=== PATIENT | female | born 1950 | race Caucasian/White ===

== ENCOUNTER 2019-06-14 08:14 | Inpatient (IN) | payer OTHER ==
[~2019-06-14] VITALS: Ht 180.3 cm; Wt 78.0 kg
--- NOTE | 2019-06-14 08:40 | NUR ---
WALLACE ACROSS FOREHEAD AREA THAT STARTED YESTERDAY. DESCRIBED SMELLING SOMETHING FIRST. PT HAS BEEN VOMITING THROUGH THE NIGHT
[2019-06-14] MEDS ORDERED: METOCLOPRAMIDE 5 MG/ML, 2ML IVPush ONE (09:00)
[2019-06-14] MEDS ORDERED: METOCLOPRAMIDE 5 MG/ML, 2ML ONE (09:00)
[2019-06-14] MEDS ORDERED: DIPHENHYDRAMINE 50 MG/ML, 1ML ONE (09:00)
[2019-06-14] MEDS ORDERED: DIPHENHYDRAMINE 50 MG/ML, 1ML IVPush ONE (09:00)
[2019-06-14] MEDS ORDERED: SODIUM CHLORIDE 0.9% 1,000ML IVBOLUS ONE (09:00)
--- NOTE | 2019-06-14 09:14 | NUR ---
PT DRY HEAVING AND MEDICATED FOR SAME NOTED ON MAR WITH FLUIDS INFUSING
[2019-06-14 09:51] LABS: BASOPHILS # (AUTO) 0.01 x10^3/uL (0-0.1); BASOPHILS % (AUTO) 0 % (0-1); EOSINOPHILS % (AUTO) 0 % (1-7); LYMPHOCYTES # (AUTO) 1.31 x10^3/uL (1-3.4); LYMPHOCYTES % (AUTO) 25 % (22-44); MD NO; MEAN CORPUSCULAR HEMOGLOBIN 30.5 pg (27.0-34.8); MEAN CORPUSCULAR HGB CONC 33.6 g/dL (32.4-35.8); MEAN CORPUSCULAR VOLUME 90.8 fL (80-100); MEAN PLATELET VOLUME 8.5 fL (7.4-10.4); MONOCYTES # (AUTO) 0.13 x10^3/uL (0.2-0.8); MONOCYTES % (AUTO) 2 % (2-9); NEUTROPHILS % (AUTO) 73 % (42-75); PLATELET COUNT 184 x10^3/uL (130-400); RED BLOOD COUNT 4.81 x10^6/uL (3.82-5.3)
[2019-06-14 09:58] LABS: ALANINE AMINOTRANSFERASE 15 U/L (12-78); ALBUMIN 4.2 g/dL (3.4-5.0); ANION GAP 9 mmol/L (5-15); CHLORIDE 108 mmol/L (98-107); CREATININE 0.57 mg/dL (0.55-1.02)
[2019-06-14] MEDS ORDERED: PROMETHAZINE 25 MG/ML, 1ML ONE (09:59)
[2019-06-14] MEDS ORDERED: KETOROLAC 30 MG/1 ML ONE ×3 (09:59→17:49)
[2019-06-14] MEDS ORDERED: DEXAMETHASONE 4 MG/ML, 1ML IVPush ONE (10:00)
[2019-06-14] MEDS ORDERED: KETOROLAC 30 MG/1 ML IV ONE (10:00)
[2019-06-14] MEDS ORDERED: MORPHINE SULFATE 4 MG/ML, 1ML ONE ×3 (10:00→18:31)
--- NOTE | 2019-06-14 10:01 | NUR ---
AMBULATED TO BATHROOM WITHOUT ASSISTANCE. C/O CONTINUED WALLACE, NAUSEA AND DRY HEAVES. MD AWARE AND ORDERS RECEIVED FOR ADDITIONAL MEDICATION
[2019-06-14 10:03] LABS: ALKALINE PHOSPHATASE 60 U/L (45-117); BILIRUBIN,TOTAL 1.1 mg/dL (0.2-1.0); TOTAL PROTEIN 8.3 g/dL (6.4-8.2); TROPONIN I < 0.015 ng/mL (0.000-0.045)
[2019-06-14] MEDS: PROMETHAZINE 25 MG/ML, 1ML IM ONE ×2 (10:03→10:13)
[2019-06-14] MEDS: morphine SULFATE 10 MG/ML, 1ML IVPush PRN ×4 (10:03→18:34)
[2019-06-14] MEDS ORDERED: DEXAMETHASONE 4 MG/ML, 1ML ONE (10:17)
[2019-06-14] MEDS ORDERED: ENALAPRILAT 1.25 MG/ML, 2ML IV ONE (11:30)
[2019-06-14] MEDS ORDERED: ENALAPRILAT 1.25 MG/ML, 1ML ONE (11:41)
--- NOTE | 2019-06-14 11:47 | NUR ---
PT STATES NO LONGER NAUSEATED. PROVIDED [place]. CONTINUES TO HAVE WALLACE. MEDICATED NOTED ON JUL FOR BP 196/83
[2019-06-14] MEDS ORDERED: hydrALAzine 20 MG/ML, 1ML IV ONE (12:30)
[2019-06-14] MEDS ORDERED: KETOROLAC 30 MG/1 ML IVPush ONE (12:30)
[2019-06-14] MEDS ORDERED: hydrALAzine 20 MG/ML, 1ML ONE (12:48)
--- NOTE | 2019-06-14 12:58 | NUR ---
HOSPITALIST AT BEDSIDE
[2019-06-14] MEDS ORDERED: ONDANSETRON 2MG/ML, 2ML IVPush PRN (13:00)
[2019-06-14] MEDS ORDERED: NITROGLYCERIN 0.4 MG/SPRAY SL PRN (13:00)
[2019-06-14] MEDS ORDERED: LABETALOL 5MG/ML, 20ML IVPush PRN (13:00)
[2019-06-14] MEDS ORDERED: AMLODIPINE 5 MG TABLET PO SCH (13:00)
[2019-06-14] MEDS ORDERED: ENALAPRILAT 1.25 MG/ML, 2ML IVPush PRN (13:00)
[2019-06-14] MEDS ORDERED: BACLOFEN 10 MG TABLET PO PRN (13:00)
[2019-06-14] MEDS ORDERED: ONDANSETRON ODT 4 MG PO PRN (13:00)
[2019-06-14] MEDS ORDERED: PROMETHAZINE 25 MG/ML, 1ML IM PRN (13:00)
[2019-06-14] MEDS ORDERED: HYDROcodone/APAP 5/325 TABLET PO PRN (13:00)
[2019-06-14] MEDS ORDERED: NITROGLYCERIN 0.4 MG BOTTLE (25 TABS) SL PRN (13:00)
[2019-06-14] MEDS ORDERED: ACETAMINOPHEN 325 MG TABLET PO PRN (13:00)
[2019-06-14] MEDS ORDERED: hydrALAzine 20 MG/ML, 1ML IVPush PRN (13:00)
[2019-06-14] MEDS ORDERED: AMLODIPINE 5 MG TABLET PO ONE (13:00)
[2019-06-14] MEDS ORDERED: HYDR-3622 PO (13:02)
[2019-06-14] MEDS ORDERED: METH10TA2 PO (13:02)
[2019-06-14] MEDS: METHADONE 10 MG TABLET PO SCH ×2 (14:27→19:56)
--- NOTE | 2019-06-14 14:28 | NUR ---
OFF FLOOR TO CT
[2019-06-14] MEDS ORDERED: LISINOPRIL 20 MG TABLET ONE (14:50)
[2019-06-14] MEDS ORDERED: AMLODIPINE 5 MG TABLET ONE (14:50)
[2019-06-14] MEDS ORDERED: OMNIPAQUE 350 MG/ML, 100ML BOTTLE ONE (14:51)
[2019-06-14] MEDS: LISINOPRIL 20 MG TABLET PO SCH (14:55)
--- NOTE | 2019-06-14 14:59 | NUR ---
ON RETURN FROM CT MEDICATED FOR CONTINUED WALLACE
--- NOTE | 2019-06-14 16:08 | NUR ---
FAMILY AT BEDSIDE VISITING
[2019-06-14] MEDS ORDERED: MIRT15TA94 PO (16:11)
[2019-06-14] MEDS ORDERED: METH750T2 PO (16:11)
[2019-06-14] MEDS ORDERED: CARV3.122 PO (16:11)
[2019-06-14] MEDS ORDERED: IBUP-1223 PO (16:11)
[2019-06-14] MEDS ORDERED: KETOROLAC 30 MG/1 ML IVPush SCH (17:30)
--- NOTE | 2019-06-14 18:03 | NUR ---
AMBULATED TO BATHROOM WITHOUT ASSISTANCE. PT INTO HOSPITAL BED WHILE AWAITING ROOM ASSIGNMENT
[2019-06-14] MEDS: D5%-0.45NACL+KCL 20MEQ 1,000 ML IV SCH (18:15)
--- NOTE | 2019-06-14 19:07 | NUR ---
REPORT TO SARA KRAFT
[2019-06-14 19:11] LABS: TROPONIN I < 0.015 ng/mL (0.000-0.045)
--- NOTE | 2019-06-14 19:14 | NUR ---
REPORT RECEIVED FROM ABENA CASTRO. PLAN OF CARE DISCUSSED
--- NOTE | 2019-06-14 19:46 | NUR ---
REPORT GIVEN TO ABENA ELI. PLAN OF CARE DISCUSSED.
--- NOTE | 2019-06-14 20:06 | NUR ---
methadone was given before transfer pt to floor vss updated stable rich bassett given report
[2019-06-14 20:49] VITALS: BP 142/64
[2019-06-14] MEDS: CARVEDILOL 3.125 MG TABLET PO SCH (20:59)
[2019-06-14] MEDS: KETOROLAC 30 MG/1 ML IVPush SCH (20:59)
[2019-06-14] MEDS: MIRTAZAPINE 15 MG TAB.RAPDIS PO SCH (20:59)
[2019-06-15] MEDS: METHADONE 10 MG TABLET PO SCH ×4 (01:55→20:08)
[2019-06-15] MEDS: D5%-0.45NACL+KCL 20MEQ 1,000 ML IV SCH (01:55)
[2019-06-15] MEDS: KETOROLAC 30 MG/1 ML IVPush SCH ×4 (02:00→20:08)
[2019-06-15 02:03] VITALS: BP 135/65
[2019-06-15] MEDS: morphine SULFATE 10 MG/ML, 1ML IVPush PRN (04:13)
[2019-06-15 05:13] LABS: BASOPHILS # (AUTO) 0.05 x10^3/uL (0-0.1); BASOPHILS % (AUTO) 1 % (0-1); EOSINOPHILS % (AUTO) 0 % (1-7); LYMPHOCYTES # (AUTO) 2.32 x10^3/uL (1-3.4); LYMPHOCYTES % (AUTO) 23 % (22-44); MD NO; MEAN CORPUSCULAR HEMOGLOBIN 30.3 pg (27.0-34.8); MEAN CORPUSCULAR HGB CONC 33.1 g/dL (32.4-35.8); MEAN CORPUSCULAR VOLUME 91.6 fL (80-100); MEAN PLATELET VOLUME 8.4 fL (7.4-10.4); MONOCYTES # (AUTO) 0.53 x10^3/uL (0.2-0.8); MONOCYTES % (AUTO) 5 % (2-9); NEUTROPHILS # (AUTO) 7.24 x10^3/uL (1.8-6.8); NEUTROPHILS % (AUTO) 71 % (42-75); PLATELET COUNT 170 x10^3/uL (130-400); RED BLOOD COUNT 4.23 x10^6/uL (3.82-5.3); RED CELL DISTRIBUTION WIDTH 13.9 % (9.6-15.2)
[2019-06-15 05:28] LABS: ALANINE AMINOTRANSFERASE 15 U/L (12-78); ALBUMIN 3.4 g/dL (3.4-5.0); ANION GAP 5 mmol/L (5-15); CALCIUM 8.7 mg/dL (8.5-10.1); CHLORIDE 109 mmol/L (98-107); CREATININE 1.02 mg/dL (0.55-1.02)
[2019-06-15 05:33] LABS: ALKALINE PHOSPHATASE 46 U/L (45-117); BILIRUBIN,TOTAL 0.7 mg/dL (0.2-1.0); TOTAL PROTEIN 6.7 g/dL (6.4-8.2); TROPONIN I < 0.015 ng/mL (0.000-0.045)
[2019-06-15 07:46] VITALS: BP 100/56
[2019-06-15] MEDS: AMLODIPINE 5 MG TABLET PO SCH (08:26)
[2019-06-15] MEDS: CARVEDILOL 3.125 MG TABLET PO SCH ×3 (08:27→20:09)
[2019-06-15] MEDS: LISINOPRIL 20 MG TABLET PO SCH (08:27)
[2019-06-15 11:38] VITALS: BP 132/64
[2019-06-15 13:21] VITALS: BP 135/65
[2019-06-15] MEDS ORDERED: HALOPERIDOL 5 MG/ML IV ONE (15:30)
[2019-06-15] MEDS ORDERED: SODIUM CHLORIDE 0.9% 1,000ML IVBOLUS ONE (15:30)
[2019-06-15] MEDS ORDERED: DIPHENHYDRAMINE 50 MG/ML, 1ML IVPush ONE (15:30)
[2019-06-15 17:34] VITALS: BP 129/66
[2019-06-15] MEDS ORDERED: CARV6.25 PO (18:05)
[2019-06-15] MEDS ORDERED: ALBU18HF INH (18:11)
[2019-06-15] MEDS ORDERED: AMLO5TAB4 PO (18:11)
[2019-06-15] MEDS ORDERED: HYDR-3652 PO (18:11)
[2019-06-15] MEDS: MIRTAZAPINE 15 MG TAB.RAPDIS PO SCH (20:08)
[2019-06-15 20:33] VITALS: BP 156/67
[2019-06-16 01:56] VITALS: BP 157/68
[2019-06-16] MEDS: METHADONE 10 MG TABLET PO SCH ×2 (02:34→08:44)
[2019-06-16] MEDS: KETOROLAC 30 MG/1 ML IVPush SCH ×2 (02:34→08:44)
[2019-06-16 06:22] VITALS: BP 154/66
[2019-06-16 06:23] LABS: BASOPHILS # (AUTO) 0.02 x10^3/uL (0-0.1); BASOPHILS % (AUTO) 0 % (0-1); EOSINOPHILS % (AUTO) 0 % (1-7); LYMPHOCYTES # (AUTO) 2.57 x10^3/uL (1-3.4); LYMPHOCYTES % (AUTO) 26 % (22-44); MD NO; MEAN CORPUSCULAR HEMOGLOBIN 30.2 pg (27.0-34.8); MEAN CORPUSCULAR HGB CONC 32.9 g/dL (32.4-35.8); MEAN CORPUSCULAR VOLUME 91.8 fL (80-100); MEAN PLATELET VOLUME 8.8 fL (7.4-10.4); MONOCYTES # (AUTO) 0.54 x10^3/uL (0.2-0.8); MONOCYTES % (AUTO) 6 % (2-9); NEUTROPHILS % (AUTO) 68 % (42-75); PLATELET COUNT 157 x10^3/uL (130-400); RED BLOOD COUNT 4.12 x10^6/uL (3.82-5.3); RED CELL DISTRIBUTION WIDTH 14.4 % (9.6-15.2)
[2019-06-16 06:51] LABS: ANION GAP 5 mmol/L (5-15); CALCIUM 8.3 mg/dL (8.5-10.1); CHLORIDE 115 mmol/L (98-107)
[2019-06-16 06:54] LABS: CREATININE 0.66 mg/dL (0.55-1.02)
[2019-06-16] MEDS ORDERED: AMLO10TA8 PO (08:11)
[2019-06-16] MEDS ORDERED: LISI-170 PO (08:11)
[2019-06-16] MEDS: AMLODIPINE 5 MG TABLET PO SCH (08:43)
[2019-06-16] MEDS: CARVEDILOL 3.125 MG TABLET PO SCH (08:43)
[2019-06-16] MEDS: LISINOPRIL 20 MG TABLET PO SCH (08:44)
[2019-06-16] MEDS ORDERED: AMLODIPINE 5 MG TABLET PO SCH (09:00)
[2019-06-16 09:40] VITALS: BP 143/63
== END 2019-06-16 10:53 | disposition home or self-care (01) | DRG 103 ==
LOC: ED 10:14 → EDIP 12:29 → 4WST 20:16
PROVIDERS: ADMIT Hospitalist; ATTEND Family Medicine
DX: G43.909 Migraine, unspecified, not intractable, without status migrainosus (principal); F11.20 Opioid dependence, uncomplicated; E87.6 Hypokalemia; I16.0 Hypertensive urgency; G89.29 Other chronic pain; I10 Essential (primary) hypertension; Z82.49 Family history of ischemic heart disease and other diseases of the circulatory system; Z83.3 Family history of diabetes mellitus; Z87.828 Personal history of other (healed) physical injury and trauma; Z87.891 Personal history of nicotine dependence; Z88.2 Allergy status to sulfonamides
CPT/HCPCS: 36415; 70450; 70496; 71045; 80048; 80053; 82962; 83735; 84484; 85025; 93005; 96372; 96374; 96375; G0378; J1100; J1885; J2550; Q9967; J0360; J1200; J1630; J2270; J2765; J3480; J7030; J7512